=== PATIENT | male | born 1995 | race Caucasian/White ===

== ENCOUNTER 2021-02-26 17:11 | Emergency (ER) | payer OTHER ==
[~2021-02-26] VITALS: Ht 172.7 cm; Wt 65.8 kg
[2021-02-26] MEDS ORDERED: SUPER THERAVIT1 EACH PO (17:31)
[2021-02-26] MEDS ORDERED: PROBIOTIC1 EAC7 PO (17:31)
[2021-02-26] MEDS ORDERED: HYDROCODON-ACE1 EAC7 PO (18:01)
[2021-02-26 18:10] VITALS: BP 111/81
== END 2021-02-26 18:10 | disposition home or self-care (01) ==
LOC: M.ERS 17:11
DX: S93.492A Sprain of other ligament of left ankle, initial encounter (principal); Z88.1 Allergy status to other antibiotic agents; Z88.0 Allergy status to penicillin; X50.9XXA Other and unspecified overexertion or strenuous movements or postures, initial encounter; Y93.89 Activity, other specified; Y92.89 Other specified places as the place of occurrence of the external cause; Y99.8 Other external cause status

== ENCOUNTER 2021-04-10 15:31 | Observation (INO) | payer OTHER ==
[~2021-04-10] VITALS: Ht 175.3 cm; Wt 63.5 kg
--- NOTE | ~2021-04-10 | PROC ---
[facility] [address] [place] [address] PROCEDURE REPORT Name: ELA WARD Yadi Room: [address] Sherif Clifton#: [id number] Admission: 04/10/21 Attend Phys: Love Baez DO Discharge: 04/13/21 Date of : 89 Report #: [id number] THIS REPORT FOR: cc: YOVANI RHODES [facility],Medical Records Staff ~ For GI report, please see the Provation report in Perceptive 7 content. By: 1454Medical Records Staff BERNICE /HASMUKH
[~2021-04-10 15:31] MED LIST: HYDROCODON-ACE1 EAC7 PO; PROBIOTIC1 EAC7 PO; SUPER THERAVIT1 EACH PO
[2021-04-10 15:34] VITALS: BP 139/100
[2021-04-10] MEDS ORDERED: REGLAN 10 MG TA10 MG PO (15:39)
[2021-04-10] MEDS ORDERED: ANTIBIOTIC (15:40)
[2021-04-10] MEDS ORDERED: ONDANSETRON ODT4 MG PO (15:40)
[2021-04-10] MEDS ORDERED: MELOXICAM10 MG PO (15:42)
[2021-04-10] MEDS ORDERED: CIPRO250 M2 PO (15:42)
[2021-04-10 19:43] LABS: URINE BILIRUBIN NEGATIVE (Negative); URINE BLOOD NEGATIVE (Negative); URINE CLARITY CLEAR; URINE COLOR YELLOW; URINE GLUCOSE-RANDOM NEGATIVE (Negative); URINE KETONES 2+ (Negative); URINE LEUKOCYTES-REFLEX NEGATIVE (Negative); URINE NITRITE-REFLEX NEGATIVE (Negative); URINE PROTEIN NEGATIVE (Negative); URINE SPECIFIC GRAVITY 1.025 (1.005-1.030); URINE UROBILINOGEN 0.2 E.U./dl (0.2-1.0)
[2021-04-10 19:49] LABS: ABSOLUTE EOSINOPHILS 0.3 thou/uL (0.0-0.7); ABSOLUTE LYMPHOCYTES 1.9 thou/uL (0.8-5.3); ABSOLUTE MONOCYTES 0.6 thou/uL (0.0-1.2); ABSOLUTE NEUTROPHILS 6.7 thou/uL (1.6-8.1); BASOPHILS 0.2 %; HEMATOCRIT 43.8 % (42.0-52.0); HEMOGLOBIN 15.2 gm/dL (14.0-18.0); LYMPHOCYTES 20.3 %; MCH 30.2 pg (26.0-34.0); MCHC 34.7 g/dL (28.0-37.0); MCV 87.1 fL (80.0-100.0); MONOCYTES 6.5 %; MPV 9.3 fl. (7.2-11.1); NUCLEATED RBCS 0 /100WBC; PLATELET COUNT* 282 thou/uL (150-400); RBC 5.03 mil/uL (4.50-6.00); RDW-CV 13.1 % (10.5-14.5); WBC 9.5 thou/uL (4.0-11.0)
[2021-04-10 20:03] LABS: CALCIUM 8.9 mg/dL (8.5-10.1); CREATININE 0.9 mg/dL (0.6-1.3); POTASSIUM 3.6 mmol/L (3.5-5.1)
[2021-04-10 20:07] LABS: ALBUMIN 4.6 g/dL (3.4-5.0); TOTAL BILIRUBIN 1.5 mg/dL (<0.1-1.0); TOTAL PROTEIN 8.3 g/dL (6.4-8.2)
[2021-04-11 02:28] VITALS: BP 110/57
[2021-04-11 03:58] LABS: ABSOLUTE EOSINOPHILS 0.5 thou/uL (0.0-0.7); ABSOLUTE LYMPHOCYTES 2.9 thou/uL (0.8-5.3); ABSOLUTE MONOCYTES 0.9 thou/uL (0.0-1.2); ABSOLUTE NEUTROPHILS 4.9 thou/uL (1.6-8.1); BASOPHILS 0.2 %; EOSINOPHILS 5.5 %; HEMATOCRIT 44.2 % (42.0-52.0); HEMOGLOBIN 15.3 gm/dL (14.0-18.0); LYMPHOCYTES 31.1 %; MCH 30.4 pg (26.0-34.0); MCHC 34.7 g/dL (28.0-37.0); MCV 87.5 fL (80.0-100.0); MONOCYTES 9.5 %; MPV 9.3 fl. (7.2-11.1); NUCLEATED RBCS 0 /100WBC; PLATELET COUNT* 292 thou/uL (150-400); POLYS 53.7 %; RBC 5.05 mil/uL (4.50-6.00); WBC 9.2 thou/uL (4.0-11.0)
[2021-04-11 04:27] LABS: ALBUMIN 4.4 g/dL (3.4-5.0); CALCIUM 8.8 mg/dL (8.5-10.1); CREATININE 0.9 mg/dL (0.6-1.3); POTASSIUM 3.4 mmol/L (3.5-5.1)
[2021-04-11 05:28] VITALS: BP 131/71
[2021-04-11 08:24] VITALS: BP 141/86
--- NOTE | 2021-04-11 09:24 | NUR ---
DR. BRINK IN SEEING PT.
--- NOTE | 2021-04-11 14:38 | NUR ---
CM ASSESSMENT: CM SPOKE TO THE PT TO COMPLETE CM ASSESSMENT. PT A&O, INDEPENDENT, ACTIVE AND WORKS OUTSIDE THE HOME. PT USES 0 DME. NO CM D/C PLANNING NEEDS ANTICIPATED AT THIS TIME. CM WILL REMAIN AVAILABLE TO ASSIST AND FOLLOW NEEDED.
--- NOTE | 2021-04-11 17:12 | NUR ---
ALEJANDRO DE JESUS WHO SPOKE WITH DR. BRINK GIVE PT WATER AND SEE IF HE TOLERATES IT.
--- NOTE | 2021-04-11 18:43 | NUR ---
DR. NOBLE IN SEEING PT.
[2021-04-11 21:00] VITALS: BP 114/63
[2021-04-11 21:10] VITALS: BP 138/71
[2021-04-12 04:39] LABS: ABSOLUTE EOSINOPHILS 0.3 thou/uL (0.0-0.7); ABSOLUTE LYMPHOCYTES 1.6 thou/uL (0.8-5.3); ABSOLUTE MONOCYTES 0.8 thou/uL (0.0-1.2); ABSOLUTE NEUTROPHILS 7.2 thou/uL (1.6-8.1); BASOPHILS 0.2 %; EOSINOPHILS 3.1 %; HEMATOCRIT 39.6 % (42.0-52.0); LYMPHOCYTES 16.1 %; MCH 30.4 pg (26.0-34.0); MCHC 35.3 g/dL (28.0-37.0); MONOCYTES 8.5 %; MPV 9.6 fl. (7.2-11.1); NUCLEATED RBCS 0 /100WBC; PLATELET COUNT* 276 thou/uL (150-400); POLYS 72.1 %; RDW-CV 12.8 % (10.5-14.5)
[2021-04-12 05:13] LABS: ALBUMIN 3.8 g/dL (3.4-5.0); CALCIUM 8.5 mg/dL (8.5-10.1); CREATININE 0.8 mg/dL (0.6-1.3); DIRECT BILIRUBIN 0.2 mg/dL (<0.1-0.3); POTASSIUM 3.9 mmol/L (3.5-5.1); TOTAL BILIRUBIN 1.6 mg/dL (<0.1-1.0); TOTAL PROTEIN 7.1 g/dL (6.4-8.2)
[2021-04-12 05:14] LABS: MAGNESIUM 1.9 mg/dL (1.8-2.4); PHOSPHORUS* 4.1 mg/dL (2.5-4.9)
[2021-04-12 07:30] VITALS: BP 130/77
--- NOTE | 2021-04-12 12:20 | NUR ---
GI following, Pt to have EGD and small bowel biopsy today. Goal is home at nm. No needs anticipated.
[2021-04-12] MEDS ORDERED: LIALDA1.2 GM PO (17:53)
--- NOTE | 2021-04-12 19:43 | NUR ---
A&OX 4, PWD. LUNGS CLEAR, HEART TONES REGULAR. NOT MONITORED. +BS X 4 QUADS. PEDAL PULSES PRSENT NO EDEMA NOTED. JUST CAME BACK FROM EGD AND COLONOSCOPY. EATING HEART HEALTHY DIET AT THIS TIME. REQUESTING NAUSEA MED AND IV ZOFRAN GIVEN. IV LEFT AC NS 100MLS/HR. NO OTHER C/O. WILL CONTINUE TO MONITOR.
[2021-04-13 01:18] VITALS: BP 127/60
[2021-04-13 04:30] LABS: ABSOLUTE EOSINOPHILS 0.3 thou/uL (0.0-0.7); ABSOLUTE LYMPHOCYTES 1.4 thou/uL (0.8-5.3); ABSOLUTE MONOCYTES 0.7 thou/uL (0.0-1.2); ABSOLUTE NEUTROPHILS 6.2 thou/uL (1.6-8.1); BASOPHILS 0.1 %; HEMATOCRIT 39.3 % (42.0-52.0); HEMOGLOBIN 13.7 gm/dL (14.0-18.0); LYMPHOCYTES 16.2 %; MCH 29.6 pg (26.0-34.0); MCHC 34.9 g/dL (28.0-37.0); MONOCYTES 8.2 %; MPV 9.5 fl. (7.2-11.1); NUCLEATED RBCS 0 /100WBC; PLATELET COUNT* 263 thou/uL (150-400); POLYS 71.5 %; RBC 4.62 mil/uL (4.50-6.00); RDW-CV 12.7 % (10.5-14.5); WBC 8.7 thou/uL (4.0-11.0)
[2021-04-13 04:35] LABS: CALCIUM 8.2 mg/dL (8.5-10.1); CREATININE 0.8 mg/dL (0.6-1.3); POTASSIUM 3.5 mmol/L (3.5-5.1)
[2021-04-13 06:05] VITALS: BP 113/59
[2021-04-13 07:48] LABS: ESR (SEDRATE) 4 mm/hr (0-15)
[2021-04-13 08:00] VITALS: BP 136/80
[2021-04-13] MEDS ORDERED: ONDANSETRON ODT4 MG SUBLING (14:24)
[2021-04-13 15:00] VITALS: BP 136/80
[2021-04-14 03:06] LABS: HEPATITIS B SURFACE AG Negative (Negative)
--- NOTE | 2021-04-16 18:06 | PATH ---
[address] [address] PATHOLOGY RPT PROCEDURE Name: ELA PAULSON Room: [address] Sherif Clifton#: [id number] Admission: 04/10/21 Date of : [birth year] Discharge: 04/13/21 Report #: [id number] Path Case #: [id number] [facility] Accession Number: [id number] . 01 Material submitted: . PART A: small bowel - SMALL BOWEL BIOPSIES PART B: ANTRUM - ANTRAL BIOPSIES H. PYLORI PART C: cecum - CECUM PART D: colon - ASCENDING COLON. Modifiers: ascending PART E: colon - TRANSVERSE COLON. Modifiers: transverse PART F: colon - DESCENDING COLON. Modifiers: descending PART G: sigmoid colon - SIGMOID COLON PART H: rectum - RECTUM . 01 Clinical history: . EGD AND COLONOSCOPY . 02 Diagnosis: A. Small bowel biopsies: - Focal nonspecific active duodenitis, negative for granulomas, viral inclusions and dysplasia. . B. 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 . C., D., E. and H. Cecum, ascending colon, transverse colon, and rectum: - Chronic active colitis, negative for granulomas, viral inclusions and dysplasia. See comment. . F. and G. Descending colon and sigmoid colon: - Active colitis, negative for granulomas, viral inclusions and dysplasia. See comment. (ASCENCION:brian; 04/16/2021) [facility] [place] 04/16/2021 1709 Local . 02 Comment: Each of the colonic biopsies (C through H) shows active inflammation generally evidenced by cryptitis and neutrophils in the lamina propria and chronic colitis is seen in the cecum, ascending colon, transverse colon, and rectal biopsies evidenced by basal lymphoplasmacytosis and, in several, crypt distortion and increased eosinophils as well. Ischemic features are not apparent and no pseudomembrane is seen. The histologic features suggest inflammatory bowel disease and favor ulcerative colitis. (ASCENCION:brian; 04/16/2021) . Special stain on B: [place] [address] PATHOLOGY RPT PROCEDURE Name: ELA PAULSON Yadi Room: [address] Sherif Clifton#: [id number] Admission: 04/10/21 Date of : [birth year] Discharge: 04/13/21 Report #: [id number] Path Case #: [id number] . 02 Electronically signed: . Sajan Lujan MD, Pathologist NPI- [id number] . 01 Gross description: . A. The specimen is received in formalin, labeled "Paulson, Ela W and small bowel biopsies". It consists of multiple bhakta irregular soft tissue fragments measuring 0.8 x 0.4 x 0.2 cm in aggregate. The specimen is entirely submitted between sponges in A1. . B. The specimen is received in formalin, labeled "Paulson, Ela W and antral biopsies". It consists of 3 bhakta irregular soft tissue fragments ranging from 0.2-0.3 cm in greatest dimension. The specimen is entirely submitted between sponges in B1. . C. The specimen is received in formalin, labeled "Paulson, Ela W and cecum". It consists of 2 bhakta irregular soft tissue fragments measuring 0.3 and 0.4 cm. The specimen is entirely submitted between sponges in C1. . D. The specimen is received in formalin, labeled "Paulson, Ela W and ascending colon". It consists of 2 bhakta irregular soft tissue fragments measuring 0.5 and 0.6 cm. The specimen is entirely submitted between sponges in D1. . E. The specimen is received in formalin, labeled "Paulson, Ela W and transverse colon". It consists of 3 bhakta irregular soft tissue fragments ranging from 0.1-0.9 cm in gross dimension. The specimen is entirely submitted between sponges in E1. . F. The specimen is received in formalin, labeled "Paulson, Ela W and descending colon". It consists of 2 bhakta irregular soft tissue fragments each measuring 0.6 cm. The specimen is entirely submitted between sponges in F1. . G. The specimen is received in formalin, labeled "Paulson, Ela W and sigmoid colon". It consists of 4 bhakta irregular soft tissue fragments ranging from 0.1-0.5 cm in greatest dimension. The specimen is entirely submitted between sponges in G1. . H. The specimen is received in formalin, labeled "Paulson, Ela W and rectum". It consists of 2 bhakta irregular soft tissue fragments measuring 0.3 and 0.4 cm. The specimen is entirely submitted between sponges in H1. (MRF; 04/15/2021) [facility] 04/16/2021 1333 Local . 02 Pathologist provided ICD-10: K29.80, K29.50, K52.9, Z12.11 . [address] [place] [id number] PATHOLOGY RPT PROCEDURE Name: ELA PAULSON Room: [address] Sherif Clifton#: [id number] Admission: 04/10/21 Date of : 89 Discharge: 04/13/21 Report #: [id number] Path Case #: [id number] [facility] . [id number], [id number], [id number], [id number], [id number], [id number] Specimen Comment: A courtesy copy of this report has been sent to [phone] Specimen Comment: [id number], Specimen Comment: Report sent to , DR RHODES / DR QUILES Performed at: [address] [facility] [address], [place], [place] [id number] MD Jim Urrutia MD Phone: [phone] Performed at: [address] [facility] [address] [place], [place] [id number] MD Sajan Lujan MD Phone: [phone]
== END 2021-04-13 15:27 | disposition home or self-care (01) ==
LOC: M.ERS 15:31 → M.TBA-ER 22:28 → M.2W 04-11 21:05
PROVIDERS: Internal Medicine Gastroenterology; Nurse Practitioner Family; ADMIT Surgery; ATTEND Surgery
DX: K52.9 Noninfective gastroenteritis and colitis, unspecified (principal); K92.2 Gastrointestinal hemorrhage, unspecified; K92.1 Melena; Z20.822 Contact with and (suspected) exposure to COVID-19; R11.2 Nausea with vomiting, unspecified; F41.9 Anxiety disorder, unspecified; Z88.1 Allergy status to other antibiotic agents; Z88.0 Allergy status to penicillin; Z79.899 Other long term (current) drug therapy; Z90.49 Acquired absence of other specified parts of digestive tract

== ENCOUNTER 2021-04-13 23:27 | Emergency (ER) | payer OTHER ==
[~2021-04-13] VITALS: Ht 172.7 cm; Wt 63.5 kg
[~2021-04-13 23:27] MED LIST changes: +ANTIBIOTIC; +CIPRO250 M2 PO; +LIALDA1.2 GM PO; +MELOXICAM10 MG PO; +ONDANSETRON ODT4 MG PO; +ONDANSETRON ODT4 MG SUBLING; +REGLAN 10 MG TA10 MG PO
[2021-04-14 01:17] LABS: CALCIUM 8.5 mg/dL (8.5-10.1); CREATININE 0.8 mg/dL (0.6-1.3); POTASSIUM 3.1 mmol/L (3.5-5.1)
[2021-04-14 01:29] LABS: HEMATOCRIT 41.5 % (42.0-52.0); HEMOGLOBIN 14.7 gm/dL (14.0-18.0); MCHC 35.4 g/dL (28.0-37.0); MCV 84.7 fL (80.0-100.0); MPV 9.4 fl. (7.2-11.1); RBC 4.89 mil/uL (4.50-6.00); RDW-CV 12.6 % (10.5-14.5); WBC 8.3 thou/uL (4.0-11.0)
[2021-04-14 03:16] VITALS: BP 127/83
[2021-04-15] MEDS ORDERED: DICYCLOMINE HCL10 MG PO (19:36)
== END 2021-04-14 03:16 | disposition home or self-care (01) ==
LOC: M.ERS 23:27
PROVIDERS: Personal Emergency Response Attendant
DX: K92.1 Melena (principal); K51.90 Ulcerative colitis, unspecified, without complications; Z88.1 Allergy status to other antibiotic agents; Z88.0 Allergy status to penicillin

== ENCOUNTER 2021-04-15 19:25 | Emergency (ER) | payer OTHER ==
[~2021-04-15] VITALS: Ht 172.7 cm; Wt 63.5 kg
[2021-04-15] MEDS ORDERED: DICYCLOMINE HCL10 MG PO (19:36)
[2021-04-15 23:04] VITALS: BP 133/82
== END 2021-04-15 23:04 | disposition left against medical advice (07) ==
LOC: M.ERS 19:25
DX: R11.0 Nausea (principal); Z53.21 Procedure and treatment not carried out due to patient leaving prior to being seen by health care provider

== ENCOUNTER 2021-08-27 12:46 | Emergency (ER) | payer OTHER ==
[~2021-08-27] VITALS: Ht 172.7 cm; Wt 65.8 kg
[~2021-08-27 12:46] MED LIST changes: +DICYCLOMINE HCL10 MG PO
[2021-08-27 13:25] LABS: INFLUENZA A ANTIGEN Negative (Negative); INFLUENZA B ANTIGEN Negative (Negative)
[2021-08-27 14:35] LABS: ABSOLUTE EOSINOPHILS 0.2 thou/uL (0.0-0.7); ABSOLUTE LYMPHOCYTES 1.5 thou/uL (0.8-5.3); ABSOLUTE MONOCYTES 0.3 thou/uL (0.0-1.2); ABSOLUTE NEUTROPHILS 3.6 thou/uL (1.6-8.1); BASOPHILS 0.5 %; HEMATOCRIT 46.4 % (42.0-52.0); LYMPHOCYTES 26.5 %; MCH 29.3 pg (26.0-34.0); MCHC 34.6 g/dL (28.0-37.0); MCV 84.6 fL (80.0-100.0); MONOCYTES 5.8 %; MPV 9.1 fl. (7.2-11.1); NUCLEATED RBCS 0 /100WBC; PLATELET COUNT* 251 thou/uL (150-400); POLYS 64.2 %; RBC 5.48 mil/uL (4.50-6.00); RDW-CV 13.1 % (10.5-14.5); WBC 5.5 thou/uL (4.0-11.0)
[2021-08-27 14:42] LABS: CALCIUM 9.1 mg/dL (8.5-10.1); CREATININE 0.9 mg/dL (0.6-1.3); POTASSIUM 3.4 mmol/L (3.5-5.1)
[2021-08-27 14:44] LABS: URINE BILIRUBIN NEGATIVE (Negative); URINE BLOOD NEGATIVE (Negative); URINE CLARITY CLEAR; URINE COLOR YELLOW; URINE GLUCOSE-RANDOM TRACE (Negative); URINE KETONES NEGATIVE (Negative); URINE LEUKOCYTES-REFLEX NEGATIVE (Negative); URINE NITRITE-REFLEX NEGATIVE (Negative); URINE PROTEIN NEGATIVE (Negative); URINE SPECIFIC GRAVITY 1.025 (1.005-1.030); URINE UROBILINOGEN 0.2 E.U./dl (0.2-1.0)
[2021-08-27 14:50] LABS: ALBUMIN 4.3 g/dL (3.4-5.0); TOTAL BILIRUBIN 2.6 mg/dL (<0.1-1.0)
[2021-08-27] MEDS ORDERED: ZOFRAN ODT4 MG PO (15:34)
[2021-08-27 15:35] VITALS: BP 120/70
== END 2021-08-27 15:36 | disposition home or self-care (01) ==
LOC: M.ERS 12:46
PROVIDERS: Family Medicine; Nurse Practitioner Family
DX: K51.90 Ulcerative colitis, unspecified, without complications (principal); Z20.822 Contact with and (suspected) exposure to COVID-19; R53.83 Other fatigue; F41.9 Anxiety disorder, unspecified; Z90.49 Acquired absence of other specified parts of digestive tract; Z88.0 Allergy status to penicillin

== ENCOUNTER 2021-09-02 09:55 | Emergency (ER) | payer OTHER ==
[~2021-09-02] VITALS: Ht 172.7 cm; Wt 63.5 kg
[~2021-09-02 09:55] MED LIST changes: +ZOFRAN ODT4 MG PO
[2021-09-02 12:05] LABS: ABSOLUTE BASOPHILS 0.1 thou/uL (0.0-0.2); ABSOLUTE EOSINOPHILS 0.3 thou/uL (0.0-0.7); ABSOLUTE LYMPHOCYTES 1.5 thou/uL (0.8-5.3); ABSOLUTE MONOCYTES 0.4 thou/uL (0.0-1.2); ABSOLUTE NEUTROPHILS 6.5 thou/uL (1.6-8.1); BASOPHILS 0.7 %; EOSINOPHILS 3.1 %; HEMATOCRIT 46.3 % (42.0-52.0); LYMPHOCYTES 16.9 %; MCH 29.3 pg (26.0-34.0); MCHC 34.6 g/dL (28.0-37.0); MCV 84.7 fL (80.0-100.0); MONOCYTES 4.7 %; NUCLEATED RBCS 0 /100WBC; PLATELET COUNT* 248 thou/uL (150-400); POLYS 74.6 %; RBC 5.46 mil/uL (4.50-6.00); RDW-CV 13.1 % (10.5-14.5); WBC 8.7 thou/uL (4.0-11.0)
[2021-09-02 12:15] LABS: CALCIUM 8.9 mg/dL (8.5-10.1); CREATININE 0.8 mg/dL (0.6-1.3); POTASSIUM 3.8 mmol/L (3.5-5.1)
[2021-09-02 12:19] LABS: ALBUMIN 4.4 g/dL (3.4-5.0); TOTAL BILIRUBIN 2.1 mg/dL (<0.1-1.0); TOTAL PROTEIN 7.8 g/dL (6.4-8.2)
[2021-09-02] MEDS ORDERED: ONDANSETRON ODT8 MG PO (13:03)
[2021-09-02] MEDS ORDERED: PHENERGAN 25 MG25 M1 PO (13:03)
[2021-09-02 13:32] VITALS: BP 160/85
== END 2021-09-02 13:33 | disposition home or self-care (01) ==
LOC: M.ERS 09:55
PROVIDERS: Nurse Practitioner Family
DX: R11.2 Nausea with vomiting, unspecified (principal); K51.90 Ulcerative colitis, unspecified, without complications; F41.9 Anxiety disorder, unspecified; Z88.0 Allergy status to penicillin; Z90.49 Acquired absence of other specified parts of digestive tract